=== PATIENT | female | born 1930 | race Caucasian/White ===

== ENCOUNTER 2016-06-08 09:20 | Inpatient (IN) | payer MEDICARE ==
--- NOTE | ~2016-06-08 | EKG ---
PATIENT: KERRY GRACIA UNIT #: [id number] Ventricular Rate: 64 BPM Atrial Rate: 64 BPM P-R Interval: 166 ms QRS Duration: 126 ms Q-T Interval: 422 ms QTC Calculation(Bezet): 435 ms P [place]: 67 degrees Calculated R [place]: -45 degrees Calculated T [place]: -9 degrees Diagnosis Line: Normal sinus rhythm Diagnosis Line: Right bundle branch block Diagnosis Line: Left anterior fascicular block Diagnosis Line: Bifascicular block Diagnosis Line: Abnormal ECG Diagnosis Line: When compared with ECG of 11-OCT-2015 08:52, Diagnosis Line: No significant change was found Diagnosis Line: Confirmed by KARRI VALENZUELA MD ([id number]) on Diagnosis Line: 06/09/2016 6:43:30 AM INTERPRETING MD: ANNI
--- NOTE | ~2016-06-08 | DS ---
Unit #: [id number] #: [id number] Patient: KERRY GRACIA [id number] [address] [place], [place] [address] [id number] I MR#: [id number] NAME: KERRY GRACIA ROOM: 308 Age: 85 Sex: F Admission Date: 06/08/2016 : 1930 Discharge Date: 06/12/2016 Attending Physician: Rad Garcia M.D. Primary Care Physician: Rad Garcia M.D. DISCHARGE SUMMARY PRINCIPAL DISCHARGE DIAGNOSES 1. Hypoxemia. 2. Moderate pulmonary hypertension. 3. Mild mitral regurgitation. 4. Old cerebrovascular accident. 5. Hypertension. 6. Hyperlipidemia. 7. Chronic anticoagulation therapy. 8. Chronic kidney disease stage 3. 9. Patent foramen ovale. 10. Hiatal hernia. 11. Gastroesophageal reflux disease. 12. Obstructive sleep apnea syndrome. PROCEDURES None. COMMISS[employer] Dr. Johnson. REASON FOR HOSPITALIZATION/HOSPITAL COURSE The patient is an 85-year-old white female with a history of hypertension, hiatal hernia, gastroesophageal reflux disease, osteoarthritis, obstructive sleep apnea syndrome, chronic kidney disease stage 3, hyperlipidemia, PFO, TIA, chronic anticoagulation therapy, and recently multiple episodes of weakness. In the emergency room, she had a negative workup except she was hypoxic on room air with an O2 saturation of 87 and a PAO2 of 59, and she was admitted for further evaluation. She was afebrile and her vital signs were within normal limits. Room air ABG showed a pH of 7.5, a PCO2 of 29, and a PAO2 of 59. Cardiac enzymes were normal. CBC was normal. PT-INR was 2.9. GFR was 45. BNP was 148. Urinalysis was negative. Two-view chest x-ray showed hyperinflation and small to moderate size hiatal hernia. CT scan of the chest without dye showed emphysema, large blebs, atherosclerotic changes, pneumobilia on the left thought to be secondary to prior ERCP, and a 1.4 cm left thyroid nodule. CT scan of the head showed no active disease. EKG normal sinus rhythm, bifascicular block, and no change. Patient was admitted to a monitored bed. She was seen in consultation by Dr. Johnson from pulmonary services. Pro times were followed. She had PFTs at the bedside that were essentially normal and an esophagram that showed a hiatal hernia but no reflux or aspiration. Repeat ABGs on room air showed a PAO2 of 45. Ambulatory O2 saturations went down to 83%. Echocardiogram showed mild asymmetric left Unit #: [id number] #: [id number] Patient: BASIL,KERRY JU ventricular hypertrophy, normal contractility, EF of 55% to 60%, moderately dilated left atrium, moderate mitral anular calcification, mild mitral regurgitation, and moderate pulmonary hypertension. Patient is being discharged home after seen by pulmonary services today. DISCHARGE INSTRUCTIONS 1. She is on a healthy heart diet. 2. Office visit in one week. 3. Plan for outpatient PFTs. 4. She will follow up in the office in one week with pro time. DISCHARGE MEDICATIONS Currently, she is on: 1. Warfarin 3 mg on Tuesdays and Fridays and 2.5 mg the rest of the week. 2. Lipitor 80 mg daily. 3. Atenolol 25 mg daily. 4. Prinivil is discontinued. 5. Prevacid 30 mg daily. 6. Lumigan eyedrops O.U. daily. 7. She is given prescriptions for Combivent DuoNebs per unit dose 4 times daily, Pulmicort 0.5 mg per 2 mL q.12 hours, Perforomist 20 mcg per 2 mL q.12 hours, and Tylenol 650 q.6 p.o. p.r.n. 1. Dictated by... Genie Carpio TD: 06/12/2016 18:37 JOB #: [id number] DISCHARGE SUMMARY Page 1 of 1 X Rad Garcia MD X DISCHARGE SUMMARY
--- NOTE | ~2016-06-08 | CR97 ---
[facility] A Service of [facility] RADIOLOGY TEXT RESULTS PATIENT: KERRY GRACIA LOCATION: [facility] : [birth year] UNIT #: [id number] AGE: [address]: Rad Garcia MD SEX: F ORDER DR: [id number] [facility] [address] [facility] [place] [facility]. [place], [place] [address] [id number] I MR#: [id number] #: [id number] NAME: KERRY GRACIA : 1930 SEX: F STUDY DATE/TIME: 06/11/2016 10:08 UNIT: [address] ROOM: [facility] STUDY DESCRIPTION: CR Esophagram Attending Physician: Rad Garcia M.D. Ordering Physician: Rad Garcia M.D. Primary Care Physician: Rad Garcia M.D. MEDICAL IMAGING REPORT This report is preliminary unless electronic signature is present REVISED REPORT SEE ADDENDUM EXAM Barium esophagram. HISTORY Difficulty swallowing with reflux and known hiatal hernia for 2 months. The hiatal hernia was diagnosed 10 years ago. FINDINGS Under fluoroscopic control, barium crystals were administered orally. Swallowing was normal. The esophagus was of normal course and caliber. Patient was placed in the recumbent position and 10 spot views of the esophagus were obtained and these also were normal. Patient has a very small sliding-type hiatal hernia. Stomach was unremarkable. CONCLUSION Small hiatal hernia, otherwise unremarkable barium esophagram. Reflux itself was not demonstrated. Dictated by... Pantera Lieberman M.D. THIS IS AN ELECTRONICALLY VERIFIED REPORT Pantera Lieberman M.D. at 06/11/2016 4:52 PM KRISH/guille TD: 06/11/2016 14:54 JOB #: [id number] [facility] A Service of [facility] RADIOLOGY TEXT RESULTS PATIENT: KERRY GRACIA LOCATION: [facility] 308 : [birth year] UNIT #: [id number] AGE: [address]: Rad Garcia MD SEX: F ORDER DR: ADDENDUM A total of 10 spot radiographs were obtained with a total fluoroscopy time of 1.0 minutes. Dictated by... Pantera Lieberman M.D. THIS IS AN ELECTRONICALLY VERIFIED REPORT Pantera Lieberman M.D. at 06/13/2016 7:19 AM KRISH/guille TD: 06/11/2016 15:03 JOB #: [id number] CC: Mary/zuhairision Please Delete MEDICAL IMAGING REPORT Page 1 of 1 COPY
--- NOTE | ~2016-06-08 | CO ---
Unit #: [id number] #: [id number] Patient: KERRY GRACIA [id number] [address] [place], [place] [address] [id number] I MR#: [id number] NAME: KERRY GRACIA ROOM: 308 Age: 85 Sex: F Admission Date: 06/08/2016 : 1930 Attending Physician: Rad Garcia M.D. Primary Care Physician: Rad Garcia M.D. Consultation Date: 06/09/2016 CONSULTATION REPORT REASON FOR CONSULTATION Hypoxemia. HISTORY OF PRESENT ILLNESS This is a very pleasant 85-year-old female, who states she lives at home and was having episodes, where she felt like she was going to pass out but never did and intermittent shortness of breath. Her daughter brought her to the emergency room. In the emergency room, her saturations were lower than she normally is at home. She does use oxygen at home. She states p.r.n. during the day, but always at night. She denies a history of sleep apnea. She does admit to COPD history, but has not smoked in over 30 years. She has no fever or chills. No cough. She is on anticoagulation. She denies any history of pulmonary emboli or DVT. She does have a history of TIA in the past. Currently, the patient states she is back to her normal baseline. PAST MEDICAL HISTORY Chronic kidney disease, COPD, nocturnal hypoxemia, hypertension, hiatal hernia with GERD, osteoarthritis, hyperlipidemia, PFO, TIA, chronic anticoagulation. PAST SURGICAL HISTORY Appendectomy, cholecystectomy. ALLERGIES Iodine. MEDICATIONS Lipitor, Coumadin, Tenormin, Prevacid, Prinivil, and eye drops. SOCIAL HISTORY The patient quit smoking over 30 years ago. She denies alcohol or illicit drug use. FAMILY HISTORY COPD. REVIEW OF SYSTEMS Complete review of systems was performed, pertinent positives include chief complaint. PHYSICAL EXAMINATION VITAL SIGNS: Stable. She is afebrile. GENERAL: The patient is alert and oriented x3 and appears in no acute Unit #: [id number] #: [id number] Patient: KERRY GRACIA distress. HEENT: Eyes; PERRLA. Extraocular movements are intact. Sclerae are clear. Nose is patent and symmetrical without rhinitis. Throat without erythema or exudate. Tongue size normal. NECK: Without JVD, carotid bruit, thyromegaly. LYMPHATICS: Lymph nodes without submandibular, anterior cervical or supraclavicular adenopathy. HEART: Regular rate and rhythm without murmur appreciated. No thrills palpated. LUNGS: Diminished. There is no egophony or dullness to percussion. ABDOMEN: Soft, nontender. EXTREMITIES: Without clubbing, cyanosis, or edema. SKIN: Warm, dry, and intact. IMPRESSION 1. Intermittent lightheadedness and shortness of breath associated with some hypoxemia and unclear whether this is chronic or acute on chronic, suspect secondary to chronic obstructive pulmonary disease with cor pulmonale. However, I am not sure why this would be worsening at this time, need to recheck ABGs on room air and we will check and assess for reactive airways secondary to gastroesophageal reflux disease. 2. Hypoxemia secondary to emphysema and pulmonary hypertension. 3. Hypertension. 4. Gastroesophageal reflux disease. 5. Dyslipidemia. RECOMMENDATIONS 1. Check ABGs on room air now. 2. Check barium esophagram. 3. Change Protonix to b.i.d. 4. Change bronchodilator therapy to nebulized form. 5. Continue nocturnal O2 as needed. 6. Recommend outpatient pulmonary function test. 7. We would repeat echo to reassess pulmonary pressures for the lightheadedness and hypoxemia. Dictated by... Waqas Valenzuela/rin TD: 06/10/2016 01:22 JOB #: [id number] CONSULTATION REPORT Page 1 of 1 X Tata Jacobson CONSULTATION REPORT
--- NOTE | ~2016-06-08 | CR63 ---
[facility] A Service of [facility] RADIOLOGY TEXT RESULTS PATIENT: KERRY GRACIA LOCATION: [facility] : [birth year] UNIT #: [id number] AGE: [address]: Rad Garcia MD SEX: F ORDER DR: [id number] [facility] [address] [facility]. [place], [place] [address] [id number] E MR#: [id number] Acc #: [id number] NAME: KERRY GRACIA : 1930 SEX: F STUDY DATE/TIME: 06/08/2016 09:04 UNIT: [facility] ROOM: STUDY DESCRIPTION: CR Chest 2 View Attending Physician: Colton Cruz A.P.R.N. Ordering Physician: Colton Cruz A.P.R.N. Primary Care Physician: Rad Garcia M.D. MEDICAL IMAGING REPORT This report is preliminary unless electronic signature is present EXAM Chest 2 views 06/08/2016 0904 hours HISTORY 85-year-old woman complaining of shortness of air, weakness today. COMPARISON 10/11/2015. FINDINGS Upright PA and lateral views of the chest demonstrate heart size at the upper limits of normal with minimally tortuous atherosclerotic aorta unchanged. The pulmonary vascularity is normal. Benign calcified nodes are present. Lungs are hyperinflated likely with underlying emphysematous change. Small to moderate hiatal hernia is present. IMPRESSION 1. There is pulmonary hyperinflation with underlying calcified granulomatous change. No definite acute pulmonary or pleural findings. 2. Small to moderate hiatal hernia. Dictated by... Sharee Noble M.D. THIS IS AN ELECTRONICALLY VERIFIED REPORT Sharee Noble M.D. at 06/08/2016 2:32 PM GERARD/deo TD: 06/08/2016 10:10 JOB #: [id number] [facility] A Service of [facility] RADIOLOGY TEXT RESULTS PATIENT: KERRY GRACIA LOCATION: [facility] [address]37 : [birth year] UNIT #: [id number] AGE: [address]: Rad Garcia MD SEX: F ORDER DR: MEDICAL IMAGING REPORT Page 1 of 1 COPY
--- NOTE | ~2016-06-08 | CT57 ---
[facility] A Service of [facility] RADIOLOGY TEXT RESULTS PATIENT: KERRY GRACIA LOCATION: [facility] [address] : [birth year] UNIT #: [id number] AGE: [address]: Rad Garcia MD SEX: F ORDER DR: [id number] [facility] [address] [facility]. [place], [place] [address] [id number] I MR#: [id number] Acc #: [id number] NAME: KERRY GRACIA : 1930 SEX: F STUDY DATE/TIME: 06/08/2016 12:58 UNIT: [facility] ROOM: 42095 STUDY DESCRIPTION: CT Chest Wo Cont Attending Physician: Rad Garcia M.D. Ordering Physician: Colton Cruz A.P.R.N. Primary Care Physician: Rad Garcia M.D. MEDICAL IMAGING REPORT This report is preliminary unless electronic signature is present EXAM CT chest without contrast, 06/08/2016, 1258 hours. CLINICAL HISTORY Shortness of air with weakness and hypoxemia this morning. COMPARISON CT abdomen and pelvis 03/03/2011, chest x-ray 06/08/2016. No prior chest CT. TECHNIQUE Helical noncontrasted images were obtained from the thoracic inlet through the adrenal glands. Sagittal and coronal reconstructions were performed. Total exam DLP 591 mGy-cm. This CT exam was performed with one or more of the following radiation dose reduction techniques: automatic exposure control, adjustment of mA and/or kV according to patient size, and iterative reconstruction. FINDINGS Images through the thoracic inlet demonstrate low-density area in the left lobe of thyroid measuring 1.4 cm. This is indeterminate but statistically likely benign. Consider thyroid ultrasound followup electively Images through the chest demonstrate a tortuous aorta without aneurysm. There is atherosclerotic change of the aorta and coronary arteries. Cardiac chambers and pericardium are normal. There is no pericardial or pleural fluid. There is underlying diffuse centrilobular emphysema without large blebs or bullae. There a few scattered calcified granulomata. There is no evidence of pneumonia, edema, or pleural fluid. A small to moderate STS. [facility] A Service of [facility] RADIOLOGY TEXT RESULTS PATIENT: KERRY GRACIA LOCATION: [facility] [address] : [birth year] UNIT #: [id number] AGE: [address]: Rad Garcia MD SEX: F ORDER DR: hiatal hernia is present. Limited views through the upper abdomen demonstrate pneumobilia in the left sided bile ducts which is new compared to CT abdomen 03/03/2011. However, patient underwent ERCP on 04/06/2011 which included a sphincterotomy. IMPRESSION 1. Emphysematous changes without large blebs or bullae. There are no acute pulmonary densities or pleural effusions. 2. Atherosclerotic calcifications in the aorta and coronary arteries. No aortic aneurysm. 3. There is pneumobilia in the left sided bile ducts, new from prior CT abdomen 2011. However, the patient underwent ERCP with sphincterotomy 04/06/2011 which likely accounts for this finding. 4. Low-density indeterminate 1.4 cm nodule left lobe of thyroid. A benign etiology is favored. Consider elective thyroid ultrasound followup. Dictated by... Sharee Noble M.D. THIS IS AN ELECTRONICALLY VERIFIED REPORT Sharee Noble M.D. at 06/08/2016 2:32 PM GERARD/guille TD: 06/08/2016 14:06 JOB #: [id number] MEDICAL IMAGING REPORT Page 1 of 1 COPY
--- NOTE | ~2016-06-08 | HP ---
Unit #: [id number] #: [id number] Patient: KERRY GRACIA [id number] [facility] [address] [facility]. [place], [place] [address] [id number] I MR#: [id number] NAME: KERRY GRACIA ROOM: 61064 Age: 85 Sex: F Admission Date: 06/08/2016 : 1930 Attending Physician: Rad Garcia M.D. Primary Care Physician: Rad Garcia M.D. HISTORY AND PHYSICAL HISTORY OF PRESENT ILLNESS An 85-year-old white female with a history of hypertension, hiatal hernia, GE reflux disease, osteoarthritis, obstructive sleep apnea syndrome, chronic kidney disease stage 3, hyperlipidemia, PFO, TIA and chronic anticoagulation, recently multiple episodes of weakness, was in ER once, had a negative workup except for a slightly low oxygen level that was resolved after a brief period of time. She saw me in the office yesterday. Her O2 sat I do not recall but it was well above 90%. Labs were sent for further evaluation. She had a recent CBC that was normal. Her CMP was essentially unremarkable except for the chronic kidney disease stage 3. In any case this morning she had another episode and presented herself to the emergency room here at [facility] where she was found to be hypoxic on room air with an O2 sat of 87.6% and a PaO2 of 59. Workup looks like she probably had some underlying emphysema that has not really been treated in the past as she has been fairly asymptomatic and she is admitted for further evaluation. ALLERGIES Iodine. HOME MEDICATIONS Her medications prior to admission: 1. Lipitor 80 mg q.h.s. 2. Warfarin 3 mg on Tuesdays and Fridays and 2.5 mg the rest of the week. 3. Tenormin 50 mg daily. 4. Prevacid 30 mg daily. 5. Prinivil 5 mg daily. 6. Lumigan 1 drop each eye daily. PAST SURGICAL HISTORY 1. Appendectomy. 2. Cholecystectomy. PAST MEDICAL HISTORY 1. Hypertension. 2. CVA. 3. TIA. 4. Obstructive sleep apnea syndrome. 5. GE reflux disease. 6. Hyperlipidemia. 7. Mild mitral regurgitation. 8. Mild to moderate pulmonic valve regurgitation with elevated right ventricular systolic pressure. 9. Glaucoma. Unit #: [id number] #: [id number] Patient: KERRY GRACIA SOCIAL HISTORY , prior smoker, nondrinker, no street drug use. FAMILY HISTORY Family history is unremarkable except for both her parents smoking. PHYSICAL EXAMINATION GENERAL: She is awake, alert, oriented x3, in no acute distress. VITAL SIGNS: Afebrile, pulse 76, respirations 21, blood pressure 127/58, O2 sat on 2 L is 98%, 87.6% on room air. HEENT: Unremarkable. NECK: Neck was supple, without JVD, bruits, adenopathy or thyromegaly. CHEST: Diffusely decreased breath sounds but clear to auscultation. HEART: Heart has a regular rate and rhythm, without any murmurs, gallops or rub. ABDOMEN: Abdomen was soft, nondistended, nontender with positive bowel sounds and no hepatosplenomegaly. EXTREMITIES: Showed no cyanosis, clubbing or edema. GENITOURINARY: Deferred. ANO-RECTAL: Deferred. NEUROLOGIC: Exam is grossly intact. DIAGNOSTIC STUDIES LABORATORY VALUES: Room air ABG showed a pH of 7.5, a pCO2 is 29 and a PaO2 of 59. Cardiac enzymes normal x1 set. CBC normal. PT/INR 2.9, PTT 37.9. CMP normal except for a GFR of 45. BNP was 148. Urinalysis 1+ leukocytes, 0.2 urobilinogen. IMAGING: Two-view chest x-ray: Hyperinflation. Small to moderate sized hiatal hernia. CT scan of the chest, no dye: Emphysema. Large blebs. Atherosclerotic changes. Pneumobilia on the left. A 1.4 cm left thyroid nodule. CT scan of the head no active disease. CARDIOVASCULAR: EKG normal sinus rhythm, bifascicular block. No change versus September 2015. IMPRESSION 1. Weakness, probably multifactorial. 2. Hypoxemia. 3. Probable chronic obstructive pulmonary disease. 4. Hypertension. 5. Hyperlipidemia. 6. Pneumobilia, likely secondary to previous endoscopic retrograde cholangiopancreatography. 7. Anticoagulated with therapeutic ProTime. 8. Patent foramen ovale. 9. History of transient ischemic attack. 10. Obstructive sleep apnea syndrome. 11. Hiatal hernia. 12. Gastroesophageal reflux disease. 13. Left thyroid nodule. 14. Chronic kidney disease stage 3. 15. Glaucoma. 16. Osteoarthritis. Unit #: [id number] #: [id number] Patient: KERRY GRACIA PLAN 1. Admit to monitored bed. 2. Consult Pulmonary services. 3. DuoNeb, Symbicort, orthostatics, bedside PFTs. 4. Supplemental oxygen to keep her O2 sat above 90%. 5. Home meds have been resumed. 6. ProTimes will be followed. Dictated by Rad Garcia M.D. ROLF/tanner TD: 06/08/2016 18:03 JOB #: [id number] HISTORY AND PHYSICAL Page 1 of 1 X Rad Garcia MD X HISTORY AND PHYSICAL
--- NOTE | ~2016-06-08 | PFT ---
[id number] [facility] [address] [facility]. [place], [place] [address] [id number] MR#: [id number] NAME: KERRY GRACIA ROOM: 308 SEX: F STUDY DATE/TIME: 06/20/2016 : 1930 AGE: 85 STUDY DESCRIPTION: Attending Physician: Rad Garcia M.D. Primary Care Physician: Rad Garcia M.D. PULMONARY DIAGNOSTIC REPORT EXAM Pulmonary function test FINDINGS Spirometry is essentially normal. Flow-time loop and flow-volume loop are unremarkable. Dictated by... Anderson Johnson M.D. WOL/tanner TD: 06/20/2016 18:06 JOB #: [id number] PULMONARY DIAGNOSTIC REPORT Page 1 of 1
--- NOTE | ~2016-06-08 | CT71 ---
[facility] A Service of [facility] RADIOLOGY TEXT RESULTS PATIENT: KERRY GRACIA LOCATION: [facility] [address]76 : [birth year] UNIT #: [id number] AGE: [address]: Rad Garcia MD SEX: F ORDER DR: [id number] [place] [id number] [facility]. [place], [place] [address] [id number] E MR#: [id number] Acc #: [id number] NAME: KERRY GRACIA : 1930 SEX: F STUDY DATE/TIME: 06/08/2016 9:15 UNIT: [facility] ROOM: STUDY DESCRIPTION: CT Head Wo Contrast Attending Physician: Colton Cruz A.P.R.N. Ordering Physician: Colton Cruz A.P.R.N. Primary Care Physician: Rad Garcia M.D. MEDICAL IMAGING REPORT This report is preliminary unless electronic signature is present EXAM CT head. INDICATION Weakness and shortness of air. Altered mental status. 1-day duration. TECHNIQUE CT of the head without contrast. This CT exam was performed with one or more of the following radiation dose reduction techniques: automatic exposure control, adjustment of mA and/or kV according to patient size, and iterative reconstruction. COMPARISON CT head, 10/11/2015. FINDINGS There is no acute intracranial hemorrhage, mass lesion, or acute infarct. Gerber matter differentiation is normal. Ventricles and basilar cisterns are normal in size and configuration. No extraaxial collections. No acute osseous abnormalities. Visualized paranasal sinuses and mastoid air cells are clear. IMPRESSION No acute intracranial findings. Dictated by... Jak Dao M.D. THIS IS AN ELECTRONICALLY VERIFIED REPORT [facility] A Service of [facility] RADIOLOGY TEXT RESULTS PATIENT: KERRY GRACIA LOCATION: [facility] [address]-41 : [birth year] UNIT #: [id number] AGE: [address]: Rad Garcia MD SEX: F ORDER DR: Jak Dao M.D. at 06/08/2016 3:42 PM RPPhuong/guille TD: 06/08/2016 09:53 JOB #: [id number] MEDICAL IMAGING REPORT Page 1 of 1 COPY
[2016-06-08 09:00] LABS: ARTERIAL BLD GAS O2 SATURATION 87.6 % (90.0-100.0); ARTERIAL BLOOD GAS CARBOXY HB 2.7 %sat (0.0-9.0); ARTERIAL BLOOD GAS HCO3 22.6 mmol/L; ARTERIAL BLOOD GAS MET HB 1.2 %sat (0.0-2.0); ARTERIAL BLOOD GAS PCO2 28.9 mmHg (35.0-45.0)
[2016-06-08 09:01] LABS: ARTERIAL BLOOD GAS ALLEN TEST NORMAL; ARTERIAL BLOOD GAS ART SITE RIGHT RADIAL; ARTERIAL BLOOD GAS PO2 59.3 mmHg (80.0-100); ARTERIAL DRAW? YES
[2016-06-08 09:09] LABS: POC - CKMB <1.0 ng/mL (0.0-7.9); POC - TROPONIN <0.05 ng/mL (<=0.05)
[2016-06-08 09:12] LABS: BASOPHIL# 0.1 X10e3 (0-0.3); BASOPHIL% 0.9 % (0-2.5); EOSINOPHIL# 0.1 X10e3 (0-0.7); EOSINOPHIL% 1.4 % (0.0-7.0); HEMOGLOBIN 12.2 gm/dL (12.0-16.0); LYMPHOCYTE# 0.7 X10e3 (1.0-3.5); LYMPHOCYTE% 10.1 % (17.0-45.0); MEAN CELL VOLUME 88.3 FL (83-96); MEAN CORPUSCULAR HEMOGLOBIN 29.2 PG (28-34); MEAN CORPUSCULAR HGB CONC 33.1 g/dL (30-36); MEAN PLATELET VOLUME 8.5 FL (6.5-11.5); MONOCYTE# 0.8 X10e3 (0-1.0); MONOCYTE% 10.8 % (3.0-12.0); NEUTROPHIL# 5.4 X10e3 (1.5-7.1); NEUTROPHIL% 76.8 % (40-75); PLATELET COUNT 200 X10e3 (140-420); RED BLOOD COUNT 4.19 X10e (3.90-5.30); RED CELL DISTRIBUTION WIDTH 15.5 % (11.0-15.5)
[2016-06-08 09:13] LABS: DIFF IND NO
[~2016-06-08 09:20] MED LIST: ASPIRIN81 M1 PO; ASPIRINBUFF PO; ATENOLOL; ATENOLOL PO; ATENOLOL50 MG PO; ATORVASTATIN CA80 MG PO; BUFFERIN PO; COUMADIN2.5 MG PO; ENOXAPARIN60 MG/0.1 SQ; FISH OIL 1,0001 CAP PO; FISH OIL500 MG; FLAXSEED OIL1000 M1; FOLIC ACID PO; GLUCOSAMINE &1 EACH PO; GLUCOSAMINE CHO1 CA1 PO; GLUCOSAMINE H1500 MG PO; LANSOPRAZOLE30 M3 PO; LANSOPRAZOLE30 MG PO; LISINOPRIL PO; LISINOPRIL5 MG PO; LOPID600 MG PO; LORTAB 7.5-5001 TAB PO; LUMIGAN2.5 ML OD; PREVACID PO; PRILOSEC PO; VIT E PO; VITAMIN D32000 UNI1 PO; VITAMIND
[2016-06-08 09:28] LABS: INR 2.9; PARTIAL THROMBOPLASTIN TIME 37.9 SECONDS (23.5-31.3)
[2016-06-08 09:40] LABS: PROTHROMBIN TIME (PATIENT) 31.4 SECONDS (9.6-11.5)
[2016-06-08 10:16] LABS: ALBUMIN SERUM 3.7 g/dL (3.5-5.0); BILIRUBIN,TOTAL 0.7 mg/dL (0.2-2.0); BUN/CREATININE RATIO 11.81; CALCIUM SERUM 9.4 mg/dL (8.4-10.2); CREATININE SERUM 1.1 mg/dL (0.6-1.4); GLOM FILT RATE Estimated 45.1 mL/min (>60); PROTEIN TOTAL SERUM 6.6 g/dL (6.0-8.3)
[2016-06-08 10:34] LABS: URINE SOURCE CLEAN CATCH
[2016-06-08 10:45] LABS: URINE APPEARANCE CLEAR; URINE BILIRUBIN NEG (NEG); URINE BLOOD NEG (NEG); URINE COLOR YELLOW; URINE GLUCOSE NEG (NEG); URINE KETONE NEG (NEG); URINE LEUKOCYTE ESTERASE 1+ (NEG); URINE NITRATE NEG (NEG); URINE PROTEIN NEG (NEG); URINE SPECIFIC GRAVITY 1.003 (1.003-1.035); URINE UROBILINOGEN 0.2 MG/DL (NEG)
[2016-06-08 10:49] LABS: URBCS1 AUWI 0-2 /[HPF] (0-2); URINE BACTERIA AUWI NEG (NEGATIVE); URINE SQUAMOUS EPITHELIAL CELL NONE SEEN /[HPF]
[2016-06-08 10:56] LABS: CULTURE INDICATED? NO
[2016-06-08] MEDS ORDERED: LIPITOR80 MG PO (11:40)
[2016-06-08] MEDS ORDERED: WARFARIN SODIU2.5 M1 PO (11:41)
[2016-06-08] MEDS ORDERED: WARFARIN SODIUM3 MG PO (11:41)
[2016-06-08] MEDS ORDERED: TENORMIN50 MG PO (11:41)
[2016-06-08] MEDS ORDERED: LUMIGAN2.5 ML OU (11:42)
[2016-06-08] MEDS ORDERED: PREVACID PO (11:42)
[2016-06-08] MEDS ORDERED: PRINIVIL5 MG PO (11:42)
[2016-06-09 06:17] LABS: INR 2.8; PROTHROMBIN TIME (PATIENT) 30.7 SECONDS (9.6-11.5)
[2016-06-09 12:28] LABS: ARTERIAL BLD GAS O2 SATURATION 82.5 % (90.0-100.0); ARTERIAL BLOOD GAS CARBOXY HB 1.5 %sat (0.0-9.0); ARTERIAL BLOOD GAS HCO3 24.1 mmol/L; ARTERIAL BLOOD GAS MET HB 0.5 %sat (0.0-2.0); ARTERIAL BLOOD GAS PCO2 32.5 mmHg (35.0-45.0); ARTERIAL BLOOD GAS pH 7.478 (7.350-7.450)
[2016-06-09 12:29] LABS: ARTERIAL BLOOD GAS ALLEN TEST NORMAL; ARTERIAL BLOOD GAS ART SITE RIGHT RADIAL; ARTERIAL BLOOD GAS PO2 45.8 mmHg (80.0-100); ARTERIAL DRAW? YES
[2016-06-10 07:41] LABS: PROTHROMBIN TIME (PATIENT) 32.7 SECONDS (9.6-11.5)
[2016-06-11 06:43] LABS: INR 2.7; PROTHROMBIN TIME (PATIENT) 29.9 SECONDS (9.6-11.5)
[2016-06-12] MEDS ORDERED: PULMICORT0.5 MG/21 INH (11:50)
[2016-06-12] MEDS ORDERED: COMBIVENT U/D3 M4 INH (11:50)
[2016-06-12] MEDS ORDERED: PERFOROMIS20 MCG/2 M INH (11:51)
[2016-06-12] MEDS ORDERED: ACETAMINOPHEN650 M4 PO (11:51)
== END 2016-06-12 17:24 | disposition home or self-care (01) | DRG 189 ==
LOC: CED 09:20 → CEDOF 11:18 → C3A PCU 18:47
PROVIDERS: Internal Medicine; Nurse Practitioner
DX: J96.21 Acute and chronic respiratory failure with hypoxia (principal); I27.2 Other secondary pulmonary hypertension; J44.9 Chronic obstructive pulmonary disease, unspecified; K83.8 Other specified diseases of biliary tract; I27.81 Cor pulmonale (chronic); Q21.1 Atrial septal defect; I34.0 Nonrheumatic mitral (valve) insufficiency; Z86.73 Personal history of transient ischemic attack (TIA), and cerebral infarction without residual deficits; Z79.01 Long term (current) use of anticoagulants; I12.9 Hypertensive chronic kidney disease with stage 1 through stage 4 chronic kidney disease, or unspecified chronic kidney disease; N18.3 Chronic kidney disease, stage 3 (moderate); K44.9 Diaphragmatic hernia without obstruction or gangrene; K21.9 Gastro-esophageal reflux disease without esophagitis; G47.33 Obstructive sleep apnea (adult) (pediatric); M19.90 Unspecified osteoarthritis, unspecified site; H40.9 Unspecified glaucoma; Z87.891 Personal history of nicotine dependence
CPT/HCPCS: 36600; 70450; 71020; 71250; 74220; 80053; 81003; 82553; 82803; 83880; 84484; 85025; 85610; 85730; 93005; 93306; 94640; 94664; 94760; 99285

== ENCOUNTER 2016-06-26 07:37 | Emergency (ER) | payer MEDICARE ==
--- NOTE | ~2016-06-26 | EKG ---
PATIENT: KERRY GRACIA UNIT #: [id number] Ventricular Rate: 76 BPM Atrial Rate: 76 BPM P-R Interval: 154 ms QRS Duration: 132 ms Q-T Interval: 408 ms QTC Calculation(Bezet): 459 ms P [employer]: 34 degrees Calculated R [employer]: -55 degrees Calculated T [employer]: 22 degrees Diagnosis Line: Normal sinus rhythm Diagnosis Line: Left axis deviation Diagnosis Line: Right bundle branch block with repolarization Diagnosis Line: abnormality Diagnosis Line: Abnormal ECG Diagnosis Line: When compared with ECG of 08-JUN-2016 08:10, Diagnosis Line: No significant change was found Diagnosis Line: Confirmed by BERTHA THOMAS MD ([id number]) on 06/27/2016 Diagnosis Line: 9:59:48 AM INTERPRETING MD: WILLIAM WATKINS
--- NOTE | ~2016-06-26 | CR72 ---
[facility] A Service of [facility] RADIOLOGY TEXT RESULTS PATIENT: KERRY GRACIA LOCATION: [facility] : [birth year] UNIT #: [id number] AGE: [address]: Brad Jaramillo MD SEX: F ORDER DR: [id number] [facility] [address] [place], [place] [address] [id number] E MR#: [id number] Acc #: [id number] NAME: KERRY GRACIA : 1930 SEX: F STUDY DATE/TIME: 06/26/2016 8:11 UNIT: [facility] ROOM: STUDY DESCRIPTION: CR Chest Single View Portable Attending Physician: Brad Jaramillo M.D. Ordering Physician: Brad Jaramillo M.D. Primary Care Physician: Rad Garcia M.D. MEDICAL IMAGING REPORT This report is preliminary unless electronic signature is present EXAM Portable chest, 06/26 INDICATION Near-syncopal episode today with shortness of air. Symptoms started at 5 o'clock this morning. Former smoker. FINDINGS AP portable chest is compared with 06/08/2016. Cardiac and mediastinal contours are within normal limits. The lungs are emphysematous but clear. There is no pneumothorax. There is atherosclerotic disease in the aorta. IMPRESSION Emphysema. No active disease. Dictated by... Ariel De Oliveira Jr., M.D. THIS IS AN ELECTRONICALLY VERIFIED REPORT Ariel De Oliveira Jr., M.D. at 06/26/2016 4:47 PM JAS/benjamin TD: 06/26/2016 09:36 JOB #: [id number] MEDICAL IMAGING REPORT Page 1 of 1 COPY
--- NOTE | ~2016-06-26 | CT71 ---
[facility] A Service of [facility] RADIOLOGY TEXT RESULTS PATIENT: KERRY GRACIA LOCATION: [facility] : [birth year] UNIT #: [id number] AGE: [address]: Brad Jaramillo MD SEX: F ORDER DR: [id number] [facility] [address] [place], [place] [address] [id number] E MR#: [id number] Acc #: [id number] NAME: KERRY GRACIA : 1930 SEX: F STUDY DATE/TIME: 06/26/2016 8:57 UNIT: [facility] ROOM: STUDY DESCRIPTION: CT Head Wo Contrast Attending Physician: rBad Jaramillo M.D. Ordering Physician: Brad Jaramillo M.D. Primary Care Physician: Rad Garcia M.D. MEDICAL IMAGING REPORT This report is preliminary unless electronic signature is present EXAM CT brain without contrast media HISTORY Dizziness, syncopal episode at 5:00 a.m. today. TECHNIQUE Axial imaging of the brain was performed without contrast media and directly compared to the patient's previous study of 06/08/2016. This CT exam was performed with one or more of the following radiation dose reduction techniques: automatic exposure control, adjustment of mA and/or kV according to patient size, and iterative reconstruction. FINDINGS The ventricular size and configuration is enlarged but appropriate for the patient's age. Calcifications are identified in the right basal ganglia. No mass lesions, mass effect, acute hemorrhage, or edema. No intra- or extraaxial fluid collections are identified. Bone windows are reviewed. There are no acute findings. CONCLUSION Age-appropriate atrophy. Negative noncontrast CT of the brain. Dictated by... Pantera Lieberman M.D. THIS IS AN ELECTRONICALLY VERIFIED REPORT Pantera Lieberman M.D. at 06/29/2016 4:42 PM KRISH/jhonatan TD: 06/26/2016 10:54 JOB #: [id number] [facility] A Service of [facility] RADIOLOGY TEXT RESULTS PATIENT: KERRY GRACIA LOCATION: [facility] #: [id number] : [birth year] UNIT #: [id number] AGE: [address]: Brad Jaramillo MD SEX: F ORDER DR: MEDICAL IMAGING REPORT Page 1 of 1 COPY
[~2016-06-26 07:37] MED LIST changes: +ACETAMINOPHEN650 M4 PO; +COMBIVENT U/D3 M4 INH; +LIPITOR80 MG PO; +LUMIGAN2.5 ML OU; +PERFOROMIS20 MCG/2 M INH; +PRINIVIL5 MG PO; +PULMICORT0.5 MG/21 INH; +TENORMIN50 MG PO; +WARFARIN SODIU2.5 M1 PO; +WARFARIN SODIUM3 MG PO
[2016-06-26 08:17] LABS: BASOPHIL# 0.1 X10e3 (0-0.3); BASOPHIL% 0.9 % (0-2.5); EOSINOPHIL# 0.2 X10e3 (0-0.7); EOSINOPHIL% 2.3 % (0.0-7.0); HEMATOCRIT 41.1 % (35.0-45.0); HEMOGLOBIN 13.6 gm/dL (12.0-16.0); LYMPHOCYTE# 0.9 X10e3 (1.0-3.5); LYMPHOCYTE% 10.9 % (17.0-45.0); MEAN CELL VOLUME 88.7 FL (83-96); MEAN CORPUSCULAR HEMOGLOBIN 29.3 PG (28-34); MONOCYTE# 0.9 X10e3 (0-1.0); MONOCYTE% 9.9 % (3.0-12.0); NEUTROPHIL# 6.6 X10e3 (1.5-7.1); PLATELET COUNT 187 X10e3 (140-420); RED BLOOD COUNT 4.64 X10e (3.90-5.30); RED CELL DISTRIBUTION WIDTH 15.8 % (11.0-15.5); WHITE BLOOD COUNT 8.7 X10e3 (4.0-10.5)
[2016-06-26 08:21] LABS: DIFF IND NO
[2016-06-26 08:26] LABS: POC - CKMB <1.0 ng/mL (0.0-7.9); POC - TROPONIN <0.05 ng/mL (<=0.05)
[2016-06-26 08:37] LABS: INR 3.1; PARTIAL THROMBOPLASTIN TIME 39.9 SECONDS (23.5-31.3)
[2016-06-26 09:32] LABS: URINE SOURCE CLEAN CATCH
[2016-06-26 09:39] LABS: URINE APPEARANCE CLEAR; URINE BILIRUBIN NEG (NEG); URINE BLOOD NEG (NEG); URINE COLOR YELLOW; URINE GLUCOSE NEG (NEG); URINE KETONE NEG (NEG); URINE LEUKOCYTE ESTERASE NEG (NEG); URINE NITRATE NEG (NEG); URINE PH 6.5 (5-8); URINE PROTEIN NEG (NEG); URINE SPECIFIC GRAVITY 1.005 (1.003-1.035)
[2016-06-26 09:45] LABS: CULTURE INDICATED? NO
[2016-06-26 09:47] LABS: POC - CKMB <1.0 ng/mL (0.0-7.9); POC - TROPONIN <0.05 ng/mL (<=0.05)
[2016-06-26 10:25] LABS: BILIRUBIN, DIRECT 0.1 mg/dL (0.0-0.2); BILIRUBIN,INDIRECT 0.2 mg/dL (0.0-0.9); BILIRUBIN,TOTAL 0.3 mg/dL (0.2-2.0); CALCIUM SERUM 9.2 mg/dL (8.4-10.2); GLOM FILT RATE Estimated 50.6 mL/min (>60); POTASSIUM 3.9 mmol/L (3.5-5.1); PROTEIN TOTAL SERUM 6.8 g/dL (6.0-8.3)
== END 2016-06-26 12:00 | disposition home or self-care (01) ==
LOC: CED 07:37
PROVIDERS: Emergency Medicine
DX: R55 Syncope and collapse (principal); R20.2 Paresthesia of skin; J44.9 Chronic obstructive pulmonary disease, unspecified; N18.9 Chronic kidney disease, unspecified; Z86.73 Personal history of transient ischemic attack (TIA), and cerebral infarction without residual deficits; Z86.79 Personal history of other diseases of the circulatory system; Z88.8 Allergy status to other drugs, medicaments and biological substances; Z79.01 Long term (current) use of anticoagulants; Z79.899 Other long term (current) drug therapy
CPT/HCPCS: 36415; 70450; 71010; 80048; 80076; 81003; 82553; 84484; 85025; 85610; 85730; 93005; 96360; 99285